=== PATIENT | female | born 1990 | race American Indian/Alaskan Native ===

== ENCOUNTER 2021-04-17 01:44 | Emergency (ER) | payer MEDICAID ==
[2021-04-17 02:44] VITALS: BP 117/85
== END 2021-04-17 02:45 | disposition left against medical advice (07) ==
LOC: ED 01:44
DX: J02.9 Acute pharyngitis, unspecified (principal); Z53.21 Procedure and treatment not carried out due to patient leaving prior to being seen by health care provider